=== PATIENT | female | born 1980 | race Caucasian/White ===

== ENCOUNTER → 2023-05-23 08:19 | Outpatient (REF) | payer BC, SELFPAY | LOC: MRI 3T 08:19 | PROVIDERS: ATTENDING PHYSICIAN Physician Assistant Medical | DX: R16.0 Hepatomegaly, not elsewhere classified (principal); N28.1 Cyst of kidney, acquired; K76.0 Fatty (change of) liver, not elsewhere classified | CPT/HCPCS: 74183; A9581 ==

== ENCOUNTER → 2023-06-14 17:19 | Outpatient (REF) | payer BC, SELFPAY | LOC: RAD 17:19 | PROVIDERS: ATTENDING PHYSICIAN Nurse Practitioner Family | DX: R10.30 Lower abdominal pain, unspecified (principal) | CPT/HCPCS: 74019 ==

== ENCOUNTER 2023-06-15 11:09 | Emergency (ER) | payer BC, SELFPAY ==
[2023-06-15 11:20] VITALS: BP 174/102
[2023-06-15 11:49] LABS: % Basophils 0.5 % (0-2); % Immature Granulocytes 0.4 % (0-0.5); % Lymphocytes 25.4 % (20.5-51.1); % Monocytes 5.1 % (1.7-9.3); % Neutrophils 66.6 % (42.2-75.2); Absolute Eosinophils 0.2 10^3/uL (0-0.7); Absolute Lymphocytes 2.1 10^3/uL (1.2-3.4); Absolute Monocytes 0.4 10^3/uL (0.1-0.6); Absolute Neutrophils 5.6 10^3/uL (1.4-6.5); Hematocrit 39.1 % (37.0-47.0); Hemoglobin 12.7 g/dL (12.0-16.0); Mean Corp Hgb Conc. 32.5 g/dL (33.0-37.0); Mean Corpuscular Hgb 27.4 pg (27.0-31.0); Mean Corpuscular Volume 84.3 fL (81.0-99.0); Mean Platelet Volume 9.4 fL (7.4-10.4); Nucleated Red Blood Cells % 0 %; Platelet Count 339 10^3/uL (130-400); Red Blood Cell Count 4.64 10^6/uL (4.20-5.40); Red Cell Dist. Width 14.1 % (11.5-14.5); White Blood Cell Count 8.4 10^3/uL (4.8-10.8)
[2023-06-15 11:58] LABS: ALT (SGPT) 26 U/L (0-35); AST (SGOT) 26 U/L (14-36); Albumin 4.9 g/dl (3.5-5.0); Alkaline Phosphatase 64 U/L (38-126); Blood Urea Nitrogen 10 mg/dl (7-17); Calcium 9.5 mg/dl (8.4-10.2); Carbon Dioxide 23 mmol/L (22-30); Chloride 105 mmol/L (98-107); Glucose 99 mg/dl (70-99); Lipase 81 U/L (23-300); Potassium 4.2 mmol/L (3.5-5.1); Sodium 137 mmol/L (135-145); Total Bilirubin 0.6 mg/dl (0.2-1.3); Total Protein 8.5 g/dl (6.3-8.2); eGFR > 60.00
[2023-06-15 12:25] LABS: Urine Albumin Negative (Neg - Trace); Urine Bilirubin Negative (Negative); Urine Character Clear (Clear); Urine Color Yellow; Urine Glucose Negative (Negative); Urine Ketone Negative (Negative); Urine Leukocyte Negative (Negative); Urine Nitrite Negative (Negative); Urine Occult Blood Negative (Negative); Urine Urobilinogen Negative (Neg - 1+)
--- NOTE | 2023-06-15 13:43 | ED.GENMED ---
History of Present Illness
<Sivakumar Álvarez PA-C - Last Filed: 06/15/23 15:22>
General
Chief Complaint: Abdominal Pain
Source: patient
Exam Limitations: none
Time Seen by Provider: 06/15/23 13:23
Travel History
Have you had any contact with someone who has COVID-19?: No
Do you have any symptoms of coronavirus? Fever > 100 degrees, chills, cough, shortness of breath, sore throat, loss of taste or smell, muscle aches, or headache?: No
History of Present Illness
History of Present Illness:
42-year-old female presents complaining of ongoing right-sided abdominal pain starting about a week ago. Its constant pressure in her abdomen without associated chest pain. The pain does not radiate to the back. She states the symptoms are worse
when she has to urinate. She was seen by her family doctor and subsequently by another hospital's emergency room last evening. CT was performed which was unremarkable. Lab work was unremarkable as well she was discharged with pain medication.
She was having difficulty sleeping secondary pain. The pain seems to be made worse with eating. No recent travel or surgery. Pain is not pleuritic. No other complaints
Past History
<Sivakumar Álvarez PA-C - Last Filed: 06/15/23 15:22>
Past History
ED Past Medical History: Hypothyroidism and Other (Sarcoidosis)
ED Past Surgical History: and Other (Thyroidectomy)
Social History
Tobacco: Non-smoker
Personal:
Living: with family
Family History
Family History: Unable to obtain
Phy Exam
<AMELIA Roberson Last Filed: 06/15/23 15:22>
Physical Exam
Physical Exam:
General: Well-appearing female no acute respiratory distress
HEENT: Normocephalic atraumatic
Heart: Regular rate and rhythm no murmurs
Lungs: Clear no wheeze or rales
Abdomen: Soft mildly tender to the right upper quadrant epigastric area. Negative Randhawa sign no guarding or rebound no specific tenderness over McBurney's point
Extremities: No cyanosis or edema
Skin: Warm no rash
Course
<Sivakumar Álvarez PA-C - Last Filed: 06/15/23 15:22>
Orders/Labs/Results
Orders:
Orders
06/15/23 11:33
CMP [Comprehensive Metabolic Panel] Urgent
Complete Blood Count/With Diff Urgent
Lipase Urgent
Urinalysis Reflex To Culture Urgent
Date Specimen was Collected: 06/15/23
Time Specimen was Collected: 11:26
06/15/23 13:34
US Abdomen Complete/Upper Urgent
Comment:
Reason For Exam: right sided abdominal pain
Abnormal Lab Results
06/15/23
11:33
MCHC 32.5 L g/dL
(33.0-37.0)
Total Protein 8.5 H g/dl
(6.3-8.2)
06/15/23 11:33
06/15/23 11:33
Vital Signs
Initial and Last Documented VS:
Initial Vital Signs
Temp Pulse Resp BP Pulse Ox
98.1 F 76 18 174/102 99
06/15/23 11:20 06/15/23 11:20 06/15/23 11:20 06/15/23 11:20 06/15/23 11:20
Last Documented Vital Signs
Temp Pulse Resp BP Pulse Ox
98.1 F 64 16 126/74 98
06/15/23 11:20 06/15/23 16:23 06/15/23 16:23 06/15/23 16:23 06/15/23 16:23
<SHON Ernandez - Last Filed: 06/15/23 16:42>
Orders/Labs/Results
Orders:
Orders
06/15/23 11:33
CMP [Comprehensive Metabolic Panel] Urgent
Complete Blood Count/With Diff Urgent
Lipase Urgent
Urinalysis Reflex To Culture Urgent
Date Specimen was Collected: 06/15/23
Time Specimen was Collected: 11:26
06/15/23 13:34
US Abdomen Complete/Upper Urgent
Comment:
Reason For Exam: right sided abdominal pain
Abnormal Lab Results
06/15/23
11:33
MCHC 32.5 L g/dL
(33.0-37.0)
Total Protein 8.5 H g/dl
(6.3-8.2)
06/15/23 11:33
06/15/23 11:33
Vital Signs
Initial and Last Documented VS:
Initial Vital Signs
Temp Pulse Resp BP Pulse Ox
98.1 F 76 18 174/102 99
06/15/23 11:20 06/15/23 11:20 06/15/23 11:20 06/15/23 11:20 06/15/23 11:20
Last Documented Vital Signs
Temp Pulse Resp BP Pulse Ox
98.1 F 64 16 126/74 98
06/15/23 11:20 06/15/23 16:23 06/15/23 16:23 06/15/23 16:23 06/15/23 16:23
<Sivakumar Álvarez PA-C - Last Filed: 06/15/23 15:22>
MDM/Problems Addressed
Differential Diagnosis Includes:
Abdominal pain. Consider gastritis versus pancreatitis versus biliary colic. Recent CT performed at another hospital was reviewed. The patient had the report which I read. Overall unremarkable. The gallbladder was negative. Ultrasound pending
If ultrasound negative suspect possible discharge with follow-up with GI. Consider use of antacids
<SHON Ernandez - Last Filed: 06/15/23 16:42>
MDM/Problems Addressed
Differential Diagnosis Includes:
Abdominal pain. Consider gastritis versus pancreatitis versus biliary colic. Recent CT performed at another hospital was reviewed. The patient had the report which I read. Overall unremarkable. The gallbladder was negative. Ultrasound pending
If ultrasound negative suspect possible discharge with follow-up with GI. Consider use of antacids
1640: patient's ultrasound unremarkable. I spoke with patient. She has been eating some crackers here. She is in no acute distress feels well after go home. She would like to try [id number] Pepcid which is reasonable. I also sent a
prescription for Bentyl. I did place patient on the GI front office agent hotline to get a sooner appointment.
She is to return if any worsening of symptoms.
<SHON Ernandez - Last Filed: 06/15/23 16:42>
*Critical Care Note
Total Time (30-74mins, 75-104mins- exclusive of procedures): Not Applicable
ED Attending Note
<Sivakumar Álvarez PA-C - Last Filed: 06/15/23 15:22>
-
Portions of this chart may have been created with voice recognition software.� Occasional wrong word or��sound alike� substitutions may have occurred due to the inherent limitations of voice recognition software.
Discharge Plan
Departure
Patient Disposition: Home (Routine Discharge)
Date of Disposition: 06/15/23
Time of Disposition: 16:33
Patient with high blood pressure during this ER visit?: Yes
Condition: Fair
Covid-19: Not Applicable
Discharge Problem:
Abdominal pain
Instructions: Abdominal Pain, BLOOD PRESSURE
Prescriptions:
New
dicyclomine 20 mg tablet
20 mg PO QID PRN (Reason: ab) Qty: 14 0RF
No Action
norethindrone-e.estradiol-iron [June FE .08/01 (28)] 1 EACH tablet
1 ea PO DAILY
Patient Comments:
has period at this time
levothyroxine 75 MCG tablet
75 mcg PO DAILY
Referrals:
Dahlia Singer PA-C [Family Provider] -
Cheryl Carias MD [Active] -
Activity Restrictions/Additional Instructions:
As discussed he may start with [id number] Pepcid. In addition you may take Bentyl as needed as directed abdominal cramping discomfort. This medication was sent to your pharmacy .
please call GI to schedule an appointment as soon as possible. [place] diet.
Interventions
Interventions:
*General Assessment Last Done: 06/15/23 12:59
ED- Fall Risk Assessment Last Done: 06/15/23 12:59
*ED COVID-19 Vaccine History Last Done: 06/15/23 12:59
BK-Esqeob-Ntdzotmcrr Assessment Last Done: 06/15/23 12:59
Discharge Date and Time
Print Language: CHINESE
[2023-06-15 14:30] VITALS: BP 122/78
[2023-06-15 16:23] VITALS: BP 126/74
== END 2023-06-15 16:47 | disposition home or self-care (01) ==
LOC: EMR 11:09
PROVIDERS: Emergency Medicine; EMERGENCY PHYSICIAN Emergency Medicine; FAMILY PHYSICIAN Physician Assistant Medical
DX: R10.9 Unspecified abdominal pain (principal); E03.9 Hypothyroidism, unspecified; D86.9 Sarcoidosis, unspecified
CPT/HCPCS: 99284; 76700; 80053; 81003; 83690; 85025

== ENCOUNTER → 2023-07-05 06:36 | Day surgery (SDC) | payer BC, SELFPAY | LOC: GI 06:36 | PROVIDERS: ATTENDING PHYSICIAN Internal Medicine Gastroenterology; FAMILY PHYSICIAN Physician Assistant Medical | DX: Z12.11 Encounter for screening for malignant neoplasm of colon (principal); K62.1 Rectal polyp; K64.8 Other hemorrhoids; K22.89 Other specified disease of esophagus; K31.89 Other diseases of stomach and duodenum; R10.9 Unspecified abdominal pain | CPT/HCPCS: 45380; 43239; 88305; 87220; 88341; 88342 ==

== ENCOUNTER → 2024-02-12 07:03 | Outpatient (REF) | payer BC, SELFPAY | LOC: HWRCS 07:03 | PROVIDERS: ATTENDING PHYSICIAN Internal Medicine Cardiovascular Disease; FAMILY PHYSICIAN Family Medicine | DX: I10 Essential (primary) hypertension (principal); I35.1 Nonrheumatic aortic (valve) insufficiency | CPT/HCPCS: 93306 ==